=== PATIENT | female | born 1990 | race Caucasian/White ===

== ENCOUNTER 2022-09-09 11:20 | Day surgery (SDC) | payer SELFPAY ==
[2022-09-03 16:56] VITALS: BMI 24.9
[2022-09-09] MEDS ORDERED: EPINEPHrine 1:1,000 1,000 MCG/ML ML ONE (11:36)
[2022-09-09] MEDS ORDERED: LIDOCAINE HCL 1%, 10 MG/ML (20ML VIAL) ONE ×2 (11:36→15:44)
[2022-09-09] MEDS ORDERED: BACITRACIN 15 GM TUBE TOPICAL OINTMENT ONE (11:36)
[2022-09-09] MEDS ORDERED: SEVOFLURANE 250 ML BTL ONE (13:30)
[2022-09-09] MEDS ORDERED: ROCURONIUM BROMIDE 50 MG/5 ML SYRINGE ONE ×2 (13:30→15:37)
[2022-09-09] MEDS ORDERED: MIDAZOLAM HCL 2 MG/2 ML SINGLE DOSE VIAL ONE ×2 (13:30→16:09)
[2022-09-09] MEDS ORDERED: PROPOFOL 80 ML ONE (13:32)
[2022-09-09] MEDS ORDERED: HALOPERIDOL LACTATE 5 MG/ML IM ONE (14:26)
[2022-09-09] MEDS ORDERED: EPINEPHrine/PF 1 MG/1 ML (1:1,000) AMPULE ONE (16:11)
[2022-09-09] MEDS ORDERED: HYDROmorphone HCL/PF 1 MG/ML VIAL ONE (16:43)
[2022-09-09] MEDS ORDERED: GLYCOPYRROLATE 0.2 MG/1 ML VIAL ONE (16:45)
[2022-09-09] MEDS ORDERED: NEOSTIGMINE METHYLSULFATE 0.5 MG/1 ML - 10 ML MDV ONE (16:45)
[2022-09-09] MEDS ORDERED: oxyCODONE HCL 5 MG TABLET PO PRN ×2 (17:28)
[2022-09-09] MEDS ORDERED: ONDANSETRON 4 MG/2 ML VIAL IVPUSH PRN (17:28)
[2022-09-09 18:30] VITALS: TEMP 98
[2022-09-09 19:24] VITALS: BP 129/74; PULSE 98; RESP 16
== END 2022-09-09 19:30 | disposition home or self-care (01) ==
LOC: FASU 11:20
PROVIDERS: ATTEND Surgery
CPT/HCPCS: 84703; 94760

== ENCOUNTER 2022-09-09 23:06 | Emergency (ER) | payer OTHER ==
[2022-09-09 23:15] VITALS: BP 126/88; PULSE 105; RESP 17; TEMP 98.7; BMI 24.3
[2022-09-09 23:35] LABS: EPITHELIAL CELLS FEW /hpf
[2022-09-09] MEDS ORDERED: NITROFURANTOIN MACROCRYSTAL 50 MG CAPSULE (FP) PO SCH (23:45)
[2022-09-09] MEDS ORDERED: NITROFURANTOIN MACROCRYSTAL 50 MG CAPSULE (FP) ONE (23:48)
[2022-09-09] MEDS ORDERED: PHENAZOPYRIDINE HCL 100 MG TABLET (FP) PO ONE (23:48)
[2022-09-09] MEDS ORDERED: PHENAZOPYRIDINE HCL 100 MG TABLET (FP) ONE (23:49)
== END 2022-09-09 23:58 | disposition home or self-care (01) ==
LOC: FER 23:06
DX: N30.90 Cystitis, unspecified without hematuria (principal)
CPT/HCPCS: 81003; 81015; 87086; 99283-25